=== PATIENT | male | born 1935 | race Caucasian/White ===

== ENCOUNTER 2017-12-05 15:42 | Inpatient (IN) | payer OTHER, MEDICARE ==
[~2017-12-05] VITALS: Ht 177.8 cm; Wt 85.3 kg
--- NOTE | 2017-12-05 16:01 | ED GI/GU/ABDOMINAL COMPLAINT ---
History of Present Illness General Chief Complaint: Nausea, Vomiting, Diarrhea Stated Complaint: NVD Source: patient, family, old records Exam Limitations: no limitations Vital Signs & Intake/Output Vital Signs & Intake/Output Vital Signs Date Time Temp Pulse Resp B/P B/P Pulse O2 O2 Flow FiO2 Mean Ox Delivery Rate 12/06 0037 100/62 12/05 2332 97.8 78 16 88/50 96 12/05 2319 Room Air 12/05 2249 97.9 85 18 127/80 96 Room Air 12/05 2130 98.3 75 18 120/67 97 Room Air 12/05 1708 94 20 111/87 94 Room Air 12/05 1630 97 Room Air Room Air 12/05 1630 86 20 101/72 99 Room Air 12/05 1549 98.6 73 18 86/55 98 Room Air ED Intake and Output 12/06 0000 12/05 1200 Intake Total 1000 Output Total Balance 1000 Intake, IV 1000 Patient 188 lb Weight Weight Reported by Patient Measurement Method Allergies Coded Allergies: NO KNOWN ALLERGIES (12/05/17) Reconcile Medications Apixaban (Eliquis) 5 MG TABLET 1 TAB PO BID BLOOD THINNER (Reported) Atorvastatin Calcium 40 MG TABLET 1 TAB PO DAILY CHOLESTEROL (Reported) Colchicine 0.6 MG TABLET 1 TAB PO PRN GOUT (Reported) Doxycycline Hyclate 100 MG CAPSULE 1 CAP PO DAILY AMYLOIDOSIS (Reported) Furosemide 40 MG TABLET 1 TAB PO DAILY DIURETIC (Reported) Levothyroxine Sodium 75 MCG TABLET 1 TAB PO DAILY THYROID (Reported) Metoprolol Succinate 50 MG TAB.ER.24H 1 TAB PO DAILY HEART/BP (Reported) Spironolactone 25 MG TABLET 1 TAB PO DAILY DIURETIC (Reported) Tamsulosin HCl 0.4 MG CAP.ER.24H 1 CAP PO DAILY (Reported) Triage Nurses Notes Reviewed? yes Onset: Abrupt Duration: day(s): (1), constant Timing: recent history Quality/Severity: aching, cramping Severity Numbers: 6 Location: left lower quadrant, right lower quadrant Radiation: no radiation Activities at Onset: sleep Prior Abdominal Problems: none Modifying Factors: Worsens With: eating. Associated Symptoms: diarrhea, nausea/vomiting HPI: 82-year-old male with history of A. 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 No black or bloody stools no hematemesis. He denies chest pain shortness of breath. On arrival patient is noted to be hypotensive however denies dizziness or lightheadedness. He denies any fever or chills no rhinorrhea cough congestion sore throat. No sick contacts patient has been on doxycycline chronically no recent changes in his dosage. He denies any chest pain palpitations shortness of breath (Aaron Puentes) Past History Travel History Traveled to [place] past 21 day No Medical History Any Pertinent Medical History? see below for history Neurological: NONE EENT: NONE Cardiovascular: AFIB, CHF, hypertension, hyperlipidemia Respiratory: NONE Gastrointestinal: NONE Hepatic: NONE Renal: CRF Musculoskeletal: gout Psychiatric: NONE Endocrine: hypothyroidism Blood Disorders: SYSTEMATIC AMLOIDOSIS Cancer(s): NONE MANUFACTURING ENGINEERING DIRECTOR/Reproductive: NONE Pneumonia Vaccine: 10/19/04 Influenza Vaccine: 08/31/07 Surgical History Surgical History: appendectomy, hernia repair-inguinal Psychosocial History Who do you live with Spouse What is your primary language Kazakh Tobacco Use: Quit >30 days ago Family History Hx Contributory? No (Aaron Puentes) Review of Systems Review of Systems Constitutional: Reports: no symptoms, see HPI. Comments Review of systems: See HPI, All other systems negative. Constitutional, no chills no fever, HEENT: no sore throat no congestion, Cardiovascular: No chest pain Skin: no rashes, no change in skin Respiratory: No dyspnea no cough no sputum GI: see hpi : No dysuria No hematuria, no frequency Muscle skeletal: No joint pain, no back pain, Neurologic: , no headache Psych: No stress Heme/endocrine: No bruising Immunology: No lymphadenopathy (Aaron Puentes) Physical Exam Physical Exam General Appearance: well developed/nourished, alert, awake Gastrointestinal: soft Comments: Well-developed well-nourished person in no acute distress HEENT: Normal EENT exam; PERRL, EOMI, HEAD is atraumatic. moist mucous membranes. Neck: Supple, normal range of motion Back: Nontender, no CVA tenderness. Full range of motion Cardiovascular: Irregular rate and rhythm no murmurs normal JVP Respiratory: No respiratory distress. Patient speaking in full complete sentences. Breath sounds clear to auscultation bilaterally: NO W/R/R Abdomen: Soft, minimal left lower quadrant tenderness palpation nondistended, no appreciable organomegaly. Normal bowel sounds. No rebound/guarding, No appreciable enlargement of the abdominal aorta, No ascites. Extremity: No edema, full range of motion of extremities Neuro: Alert oriented x3, motor sensory normal, . There were no obvious focal neurologic abnormalities. Skin: No appreciable rash on exposed skin, skin is warm and dry. Psych: Mood and affect is normal, memory and judgment is normal. Core Measures ACS in differential dx? Yes Sepsis Present: No Sepsis Focused Exam Completed? No (Jarrod CHEATHAM,Aaron) Progress Differential Diagnosis: biliary colic, bowel obstruction, colon cancer, cholecystitis, diverticulitis, gastritis, hepatitis, hernia, ischemic bowel, peptic ulcer, PUD/GERD, perforated viscous, cdiff, gastroenteritis Plan of Care: Orders Procedure Date/time Status Clear Liquid Diet 12/06 B Active TROPONIN LEVEL 12/06 0600 Active CBC WITHOUT DIFFERENTIAL 12/06 0600 Active BASIC ELECTROLYTES PLUS BUN&CR 12/06 0600 Active EKG 12/06 0600 Active TROPONIN LEVEL 12/06 0100 Active EKG 12/06 0100 Active Vital Signs 12/05 231 Active Teach/Educate 12/05 2318 Active Pain Treatment and Response 12/05 2318 Active Nutritional Intake, Monitor 12/05 2318 Active Isolation 12/05 231 Active Intake & Output 12/05 2318 Active Patient Care Conference 12/05 2319 Active Activity/Ambulation 12/05 2319 Active Pathway - chart 12/05 2227 Active House Staff 12/05 222 Active Pathway - chart 12/05 2112 Active ECHOCARDIOGRAM 12/05 211 Active Patient Data 12/05 2102 Active Saline Lock 12/05 210 Active Misc Message 12/05 210 Active ED Holding Orders 12/05 210 Active Admit to inpatient 12/05 2101 Active Vital Signs 12/05 2101 Active Code Status 12/05 2101 Active EKG 12/05 1912 Active LACTIC ACID 12/05 1911 Complete TROPONIN LEVEL 12/05 1900 Complete CULTURE,STOOL 12/05 1722 Active C.DIFFICILE 12/05 1722 Active Intake & Output 12/05 1654 Active PROTHROMBIN TIME 12/05 1613 Complete Saline Lock 12/05 1611 Active RAPID VIRAL INFLUENZA A 12/05 1611 Complete TROPONIN LEVEL 12/05 1611 Complete LACTIC ACID 12/05 1611 Complete COMPREHENSIVE METABOLIC PANEL 12/05 1611 Complete CBC WITHOUT DIFFERENTIAL 12/05 1611 Complete EKG 12/05 1601 Active VTE Mechanical Prophylaxis 12/05 UNK Active Current Medications Sig/Natalia Start time Last Medication Dose Stop Time Status Admin Atorvastatin Calcium 40 MG 1700 12/06 1700 AC (Lipitor) Levothyroxine Sodium 0.075 MG DAILY AC 12/06 0700 AC (Synthroid) Sodium Chloride 1,000 ML Q13H 12/05 2230 AC 12/06 (Normal Saline 0.9%) 12/06 1129 0000 Apixaban 5 MG BID 12/05 2200 AC 12/05 (Eliquis) 2252 Acetaminophen 650 MG Q6P PRN 12/05 211 AC (Tylenol) Sodium Chloride 1,000 ML ONCE ONE 12/05 2114 AC 12/05 (Normal Saline 0.9%) 12/06 0514 2120 Laboratory Tests 12/05/17 192: Troponin I 0.11 *H 12/05/17 192: Lactic Acid 1.6 12/05/17 161: Anion Gap 17 H, Estimated GFR 45 L, BUN/Creatinine Ratio 18.7, Glucose 115 H, Lactic Acid 2.0, Calcium 10.0, Total Bilirubin 1.8 H, AST 41, ALT 40, Alkaline Phosphatase 130 H, Troponin I 0.09, Total Protein 8.5 H, Albumin 4.6, Globulin 3.9, Albumin/Globulin Ratio 1.2, PT 14.8 H, INR 1.41 H, CBC w Diff NO MAN DIFF REQ, RBC 4.78, MCV 96.9 H, MCH 32.6 H, RDW 13.5, MPV 8.4, Gran % 95.2 H, Lymphocytes % 2.1 L, Monocytes % 2.3, Eosinophils % 0.3, Basophils % 0.1, Absolute Granulocytes 13.8 H, Absolute Lymphocytes 0.3 L, Absolute Monocytes 0.3, Absolute Eosinophils 0, Absolute Basophils 0, PUBS MCHC 33.6 Microbiology 12/05 173 STOOL: Clostridium difficile Toxin A & B - RECD 12/05 1733 STOOL: Stool Culture - RECD 12/05 161 NASOPHARYN: Influenza Virus A & B Rapid Smear - COMP labs ordered, iv fluids runing pt alert and oriented x 3, denies dizziness or lightheadedness despite bp case d/w dr rod agrees with plan 1800 on repeat eval pt denies pain, resting in nad, he reports baseline cr of 1.5. d/w him plan of care, pending ct still however will get repeat trop and lactic at 1900h I discussed with the patient his elevated troponin case was discussed with Dr. Jason-patient's sales ambassador is Dr. beltre at [facility]-Dr. Jason advised to trend troponins no heparin at this time patient is chest pain-free sitting up in bed he is in agreement with plan and need for admission at this time. Case discussed with Dr. farah will admit. stool culture sent pt seen and eval by dr ragsdale agrees with plan Diagnostic Imaging: Viewed by Me: CT Scan. Discussed w/RAD: CT Scan. Radiology Impression: PATIENT: SHAI TONEY PRESENT AGE: 82 PATIENT ACCOUNT NO: [id number] : 35 LOCATION: [facility] ORDERING PHYSICIAN: Aaron CHEATHAM SERVICE DATE: 12/05/17 EXAM TYPE: CAT - CT ABD & PELVIS W/O IV CONTRAS EXAMINATION: CT ABDOMEN AND PELVIS WITHOUT CONTRAST CLINICAL INFORMATION: Nausea. Vomiting. Diarrhea. COMPARISON: CT scan abdomen pelvis 10/19/2007 TECHNIQUE: Multidetector volumetric imaging was performed from the superior aspect of the liver through the pubic symphysis. Sagittal and coronal reformatted images were obtained on the technologist's workstation. DLP: 384.76 mGy-cm FINDINGS: LUNG BASES: Heart size is enlarged. Lung bases are clear. No pleural effusion. LIVER, GALLBLADDER, AND BILIARY TREE: The liver is normal in size, shape, and attenuation. No focal hepatic lesion or biliary ductal dilatation is present. The gallbladder is unremarkable with no evidence of radiopaque gallstones, gallbladder wall thickening, or obvious pericholecystic inflammatory changes. PANCREAS: Unremarkable. SPLEEN: Unremarkable. ADRENAL GLANDS: Left adrenal myelolipoma. There is a large nodule measuring 4 x 3.6 cm which has a density measurement of -20 Hounsfield units this was present on the CAT scan of 10/19/2007 a previously measured 2.3 x 2 cm. The right adrenal gland is normal. KIDNEYS AND URETERS: The kidneys are normal in size, shape, and attenuation. No hydronephrosis, hydroureter, or calculi seen. No perinephric stranding. Pedunculated 1.8 cm cortical cyst at the posterior midpole of left kidney. 1.6 cm cortical cyst pedunculated at the upper pole of left kidney. BLADDER: Bladder obscured by streak artifact from bilateral hip replacement GASTROINTESTINAL TRACT: Status post appendectomy with surgical suture material adjacent to the cecum. There are a few diverticula of left colon sigmoid but no diverticulitis. No acute change of the bowel. No bowel obstruction. No bowel wall thickening or edema. Moderate volume of stool in the colon. The small bowel loops are unremarkable. ABDOMINAL WALL: Status post surgery left groin with no recurrent hernia. LYMPH NODES: Normal. VASCULAR: Atherosclerotic vascular wall calcifications of the abdomen iliac arteries and splenic artery. No aneurysm of the aorta. PELVIC VISCERA: Radiation therapy seeds within the prostate. OSSEOUS STRUCTURES: Status post bilateral hip replacement. Degenerative spondylosis of the lumbar spine with disc height narrowing and endplate spurring and facet joint arthrosis. IMPRESSION: 1. No acute abnormality CT scan abdomen pelvis. No acute change of the bowel. 2. 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 3. Status post hernia repair left groin without recurrent hernia. 4. Status post appendectomy. 5. Status post bilateral hip replacement. DICTATED BY: Binu Syed MD DATE/TIME DICTATED:12/05/171835 YARN DUMPER:CINDY DATE/TIME TRANSCRIBED:1835 CONFIDENTIAL, DO NOT COPY WITHOUT APPROPRIATE AUTHORIZATION. < Electronically signed in Other Vendor System> SIGNED BY: Binu Syed MD [id number], PATIENT: SHAI TONEY PRESENT AGE: 82 PATIENT ACCOUNT NO: [id number] : 35 LOCATION: [facility] ORDERING PHYSICIAN : Aaron CHEATHAM SERVICE DATE: 12/05/17 EXAM TYPE: RAD - XRY-PORTABLE CHEST XRAY EXAMINATION: XR PORTABLE CHEST CLINICAL INFORMATION: CHF COMPARISON: Chest x-ray 06/04/2006 TECHNIQUE: Portable frontal view of the chest was obtained. 9:12 PM FINDINGS: Lungs are clear. No pulmonary vascular congestion. There is no pleural effusion. The heart size is normal. The cardiac and mediastinal contours are normal. There are calcifications of the thoracic aorta. There are multilevel degenerative changes of dorsal spine. IMPRESSION: Unremarkable examination. DICTATED BY: Binu Syed MD DATE/TIME DICTATED:2133 YARN DUMPER:CINDY DATE/TIME TRANSCRIBED:12/05/172133 CONFIDENTIAL, DO NOT COPY WITHOUT APPROPRIATE AUTHORIZATION. <Electronically signed in Other Vendor System> SIGNED BY: Binu Syed MD 12/05/172139 Initial ED EKG: AFIB AT 110, NO ACUTE ST SEG CAHNGES Prior EKG: unchanged Repeat EKG: unchanged Rhythm Strip: atrial fibrillation (Aaron Puentes) Departure Departure Time of Disposition: 2058 Disposition: STILL A PATIENT Condition: Stable Clinical Impression Primary Impression: Nausea vomiting and diarrhea Secondary Impressions: Elevated troponin Referrals: Yordan GAMEZ,Kevin (PCP/Family) Departure Forms: Customer Survey General Discharge Information Admission Note Spoke With: Erick Farah MD Documentation of Exam: Documentation of any treatments & extenuating circumstances including Concerns Regarding Discharge (functional status, medication knowledge or non-compliance, living conditions, etc.) that warrant an admission rather than observation: CARDIO CONSULT, TREND LABS TELE MONITORING, TREND TROPONIN, PREMATURE DISCHARGE WOULD BE MEDICALLY HARMFUL (Aaron Puentes) PA/VOCATIONAL REHABILITATION SPECIALIST Co-Sign Statement Statement: ED Attending supervision documentation- [x] I saw and evaluated the patient. I have also reviewed all the pertinent lab results and diagnostic results. I agree with the findings and the plan of care as documented in the PA's/VOCATIONAL REHABILITATION SPECIALIST's documentation. 12/05/17, 20:50pm... +troponin... I assumed care of patient... he is chest pain free, benign exam, non acute ekgs.... pt merits admission for serial trops, further care, cards evaluation. no need for heparin since patient is on eliquis. pt stable for tele per cards. [] I have reviewed the ED Record and agree with the PA's/VOCATIONAL REHABILITATION SPECIALIST's documentation. [] Additions or exceptions (if any) to the PAs/VOCATIONAL REHABILITATION SPECIALIST's note and plan are summarized below: [] (Clau GAMEZ,Cuate Gan) Critical Care Note Critical Care Note Critical Care Time: 30-74 min (Aaron Puentes) Critical Care Note Critical Care Time: 30-74 min (Cuate Ragsdale MD) Critical Care Time: 30-74 min (Cuate Ragsdale MD)
[2017-12-05 16:26] LABS: ABSOLUTE BASOPHIL COUNT 0 /CUMM (0.0-0.2); ABSOLUTE EOSINOPHIL COUNT 0 /CUMM (0.0-0.7); ABSOLUTE GRANULOCYTE CT 13.8 /CUMM (1.4-6.5); ABSOLUTE LYMPH COUNT 0.3 /CUMM (1.2-3.4); ABSOLUTE MONOCYTE COUNT 0.3 /CUMM (0.10-0.60); BASOPHIL % 0.1 % (0.0-2.0); EOSINOPHIL % 0.3 % (0-5); HEMATOCRIT 46.3 % (42-52); MEAN CORPUSCULAR HGB 32.6 PG (27.0-31.0); MEAN CORPUSCULAR HGB CONC 33.6 G/DL (33.0-37.0); MEAN CORPUSCULAR VOLUME 96.9 FL (80.0-94.0); MEAN PLATELET VOLUME 8.4 FL (7.4-10.4); PLATELET COUNT 171 /CUMM (130-400); RBC DISTRIBUTION WIDTH 13.5 % (11.5-14.5); RED BLOOD CELL CT 4.78 /CUMM (4.70-6.10); WHITE BLOOD CELL COUNT 14.5 /CUMM (4.8-10.8)
[2017-12-05 16:29] LABS: PT 14.8 SEC (9.4-12.5)
[2017-12-05 17:09] LABS: GRANULOCYTE % 95.2 % (42.2-75.2)
[2017-12-05] MEDS ORDERED: SPIRONOLACTONE25 M1 PO (17:41)
[2017-12-05] MEDS ORDERED: TAMSULOSIN HCL0.4 M1 PO (17:41)
[2017-12-05] MEDS ORDERED: FUROSEMIDE40 M1 PO (17:42)
[2017-12-05] MEDS ORDERED: METOPROLOL SUCC50 M2 PO (17:42)
[2017-12-05] MEDS ORDERED: LEVOTHYROXINE75 MCG PO (17:42)
[2017-12-05] MEDS ORDERED: ELIQUIS5 M1 PO (17:43)
[2017-12-05] MEDS ORDERED: DOXYCYCLINE HY100 M2 PO (17:43)
[2017-12-05] MEDS ORDERED: ATORVASTATIN CA40 M1 PO (17:44)
[2017-12-05] MEDS ORDERED: COLCHICINE0.6 M2 PO (17:44)
--- NOTE | 2017-12-05 18:49 | CT SCAN REPORT ---
EXAMINATION: CT ABDOMEN AND PELVIS WITHOUT CONTRAST CLINICAL INFORMATION: Nausea. Vomiting. Diarrhea. COMPARISON: CT scan abdomen pelvis 10/19/2007 TECHNIQUE: Multidetector volumetric imaging was performed from the superior aspect of the liver through the pubic symphysis. Sagittal and coronal reformatted images were obtained on the technologist's workstation. DLP: 384.76 mGy-cm FINDINGS: LUNG BASES: Heart size is enlarged. Lung bases are clear. No pleural effusion. LIVER, GALLBLADDER, AND BILIARY TREE: The liver is normal in size, shape, and attenuation. No focal hepatic lesion or biliary ductal dilatation is present. The gallbladder is unremarkable with no evidence of radiopaque gallstones, gallbladder wall thickening, or obvious pericholecystic inflammatory changes. PANCREAS: Unremarkable. SPLEEN: Unremarkable. ADRENAL GLANDS: Left adrenal myelolipoma. There is a large nodule measuring 4 x 3.6 cm which has a density measurement of -20 Hounsfield units this was present on the CAT scan of 10/19/2007 a previously measured 2.3 x 2 cm. The right adrenal gland is normal. KIDNEYS AND URETERS: The kidneys are normal in size, shape, and attenuation. No hydronephrosis, hydroureter, or calculi seen. No perinephric stranding. Pedunculated 1.8 cm cortical cyst at the posterior midpole of left kidney. 1.6 cm cortical cyst pedunculated at the upper pole of left kidney. BLADDER: Bladder obscured by streak artifact from bilateral hip replacement GASTROINTESTINAL TRACT: Status post appendectomy with surgical suture material adjacent to the cecum. There are a few diverticula of left colon sigmoid but no diverticulitis. No acute change of the bowel. No bowel obstruction. No bowel wall thickening or edema. Moderate volume of stool in the colon. The small bowel loops are unremarkable. ABDOMINAL WALL: Status post surgery left groin with no recurrent hernia. LYMPH NODES: Normal. VASCULAR: Atherosclerotic vascular wall calcifications of the abdomen iliac arteries and splenic artery. No aneurysm of the aorta. PELVIC VISCERA: Radiation therapy seeds within the prostate. OSSEOUS STRUCTURES: Status post bilateral hip replacement. Degenerative spondylosis of the lumbar spine with disc height narrowing and endplate spurring and facet joint arthrosis. IMPRESSION: 1. No acute abnormality CT scan abdomen pelvis. No acute change of the bowel. 2. 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 3. Status post hernia repair left groin without recurrent hernia. 4. Status post appendectomy. 5. Status post bilateral hip replacement.
--- NOTE | 2017-12-05 21:15 | History & Physical ---
Hay Gil 12/05/172113: General Information and HPI History of Present Illness: Mr. Billings is a 82 yo m with a PMH significant for Afib on Eliquis, Systemic Amyloidosis, Smoldering Myeloma, CKD, ?CHF, Hypothyroidism, HTN, HLD, nicotine dependence (1PPD x 6 yrs, quit 55 yrs ago) who present to the ED with NVD and lower abdominal pain. Patient reports that he was in his usual state of health before having abdominal discomfort on Friday at 5 am. He recalls taking his Synthroid at 4 am with water prior to event. He rates his abdominal disconfort an average of 5/10 without radiation. He then began to vomit yellowish liquid that afternoon and subsequently watery stools. He reports multiple episodes of vomiting and diarrhea. His last vomit was 2:30 pm Friday. He has not kept himself adequately hydrated and his appetite has been poor. He reports he ate at his son's home evening but no one else in household with similar symptoms. He received his flu vaccine this season. He denies fever, chills, sick contacts, recent travel, lightheadedness, weakness, myalgias, bloody stools or urinary symptoms. Allergies/Medications Allergies: Coded Allergies: NO KNOWN ALLERGIES (12/05/17) Home Med list Apixaban (Eliquis) 5 MG TABLET 1 TAB PO BID BLOOD THINNER (Reported) Atorvastatin Calcium 40 MG TABLET 1 TAB PO DAILY CHOLESTEROL (Reported) Colchicine 0.6 MG TABLET 1 TAB PO PRN GOUT (Reported) Doxycycline Hyclate 100 MG CAPSULE 1 CAP PO DAILY AMYLOIDOSIS (Reported) Furosemide 40 MG TABLET 1 TAB PO DAILY DIURETIC (Reported) Levothyroxine Sodium 75 MCG TABLET 1 TAB PO DAILY THYROID (Reported) Metoprolol Succinate 50 MG TAB.ER.24H 1 TAB PO DAILY HEART/BP (Reported) Spironolactone 25 MG TABLET 1 TAB PO DAILY DIURETIC (Reported) Tamsulosin HCl 0.4 MG CAP.ER.24H 1 CAP PO DAILY (Reported) Past History Travel History Traveled to [place] past 21 day No Medical History Neurological: NONE EENT: NONE Cardiovascular: AFIB, CHF, hypertension, hyperlipidemia Respiratory: NONE Gastrointestinal: NONE Hepatic: NONE Renal: CRF Musculoskeletal: gout Psychiatric: NONE Endocrine: hypothyroidism Blood Disorders: SYSTEMATIC AMLOIDOSIS Cancer(s): NONE HEAD WOOD GRINDER/Reproductive: NONE Pneumonia Vaccine: 10/19/04 Influenza Vaccine: 08/31/07 Surgical History Surgical History: appendectomy, hernia repair-inguinal, hip replacement Past Family/Social History Psychosocial History Smoking Status: Former Smoker Review of Systems Review of Systems Constitutional: Reports: see HPI. Exam & Diagnostic Data Last 24 Hrs of Vital Signs/I&O Vital Signs Date Time Temp Pulse Resp B/P B/P Pulse O2 O2 Flow FiO2 Mean Ox Delivery Rate 12/05 2249 97.9 85 18 127/80 96 Room Air 12/05 2130 98.3 75 18 120/67 97 Room Air 12/05 1708 94 20 111/87 94 Room Air 12/05 1630 97 Room Air Room Air 12/05 1630 86 20 101/72 99 Room Air 12/05 1549 98.6 73 18 86/55 98 Room Air Intake & Output 12/05 1600 12/05 0800 12/05 0000 Intake Total Output Total Balance Patient 190 lb Weight Weight Reported by Patient Measurement Method Physical Exam General Appearance Alert, Oriented X3, Cooperative, No Acute Distress Skin No Significant Lesion HEENT Atraumatic, PERRLA, EOMI, Mucous Membr. moist/pink Neck Supple, No JVD, No thryomegaly Cardiovascular Irregular rate Lungs Clear to Auscultation Abdomen Normal Bowel Sounds, Soft, No Tenderness Neurological Normal Speech, Strength at 5/5 X4 Ext, Normal Tone Extremities Trace LLE edema Last 24 Hrs of Labs/[place]mond: Laboratory Tests 12/05/171925: Troponin I 0.11 *H 12/05/17 192: Lactic Acid 1.6 12/05/17 1613: Anion Gap 17 H, Estimated GFR 45 L, BUN/Creatinine Ratio 18.7, Glucose 115 H, Lactic Acid 2.0, Calcium 10.0, Total Bilirubin 1.8 H, AST 41, ALT 40, Alkaline Phosphatase 130 H, Troponin I 0.09, Total Protein 8.5 H, Albumin 4.6, Globulin 3.9, Albumin/Globulin Ratio 1.2, PT 14.8 H, INR 1.41 H, CBC w Diff NO MAN DIFF REQ, RBC 4.78, MCV 96.9 H, MCH 32.6 H, RDW 13.5, MPV 8.4, Gran % 95.2 H, Lymphocytes % 2.1 L, Monocytes % 2.3, Eosinophils % 0.3, Basophils % 0.1, Absolute Granulocytes 13.8 H, Absolute Lymphocytes 0.3 L, Absolute Monocytes 0.3, Absolute Eosinophils 0, Absolute Basophils 0, PUBS MCHC 33.6 Microbiology 12/05 1734 STOOL: Clostridium difficile Toxin A & B - RECD 12/05 1733 STOOL: Stool Culture - RECD 12/05 1613 NASOPHARYN: Influenza Virus A & B Rapid Smear - COMP Diagnostic Data EKG Results 12/05/17 19:19:22 Low voltage, irregular rate, no P waves III, aVF: T wave inversions HR: 79 QTc: 459 CXR Results 12/05/17-2100 FINDINGS: Lungs are clear. No pulmonary vascular congestion. There is no pleural effusion. The heart size is normal. The cardiac and mediastinal contours are normal. There are calcifications of the thoracic aorta. There are multilevel degenerative changes of dorsal spine. IMPRESSION: Unremarkable examination. Other Results 12/05/17-1610 CT ABD & PELVIS W/O IV CONTRAS IMPRESSION: 1. No acute abnormality CT scan abdomen pelvis. No acute change of the bowel. 2. 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 3. Status post hernia repair left groin without recurrent hernia. 4. Status post appendectomy. 5. Status post bilateral hip replacement. Assessment/Plan Assessment: Mr. Billings is a 82 yo m with a PMH significant for Afib on Eliquis, Systemic Amyloidosis, Smoldering Myeloma, ?CHF, Hypothyroidism, HTN, HLD, nicotine dependence (1PPD x 6 yrs, quit 55 yrs ago) who present to the ED with NVD and lower abdominal pain admitted to telemetry for elevated troponin Elevated troponin most likely 2/2 demand ischemia vs ACS On admission his trop trended up 0.09>>0.11 in the setting of known CKD and dehydration * Admit to telemetry for further monitoring and evaluation * Serial trop/ECG to r/o ACS * Cardio consult * ECHO to r/o SHD or valvular abnormalities * Vitals q shift * Strict I&O * Gentle hydration with NS IVF NVD most likely 2/2 viral gastroenteritis with dehydration Patient's labs showed leukocytosis without bandemia and he remained afebrile. His LA trended down from 2>>1.[address] ABD/Pel demonstrated no acute pathology * Gentle hydration with NS IVF * Follow up stool cultures * Watch off antibiotics * Monitor white count History of CKD (baseline 1.5), Afib, Systemic Amyloidosis, ?CHF, Hypothyroidism, HTN, HLD * Continue home meds except Lasix, Metoprolol until BP stable Diet: Clear liquid, advance as tolerated DVT ppx: Eliquis As Ranked By This Provider Problem List: 1. Nausea vomiting and diarrhea 2. Elevated troponin Core Measures/Misc (08/03) Acute Coronary Syndrome ACS Diagnosis: No Congestive Heart Failure Congestive Heart Failure Diagnosis No Cerebrovascular Accident CVA/TIA Diagnosis: No VTE (View Protocol) VTE Risk Factors Age>40 No Mechanical VTE Prophylaxis d/t N/A MechProphylax Ordered No VTE Pharm Prophylaxis d/t NA PharmProphylax ordered Sepsis (View protocol) Sepsis Present: No Fidelia Champion 12/05/17 2256: Resident Review Statement Resident Statement: examined this patient, discussed with manager intern, agreed with manager intern, discussed with family, reviewed EMR data (avail), discussed with nursing , reviewed images, amended to note Other Findings: 82-year-old gentleman with past medical history of a 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 fib on eliquis possible CHF, CRF cr 1.5 baseline, smuldering came to the hospital for chief complaint of nausea, vomiting, diarrhea for couple of hours. patient reported that since 5 AM had multiple episodes of nonbloody diarrhea and multiple episodes of nonbloody vomiting and nausea with no palpitation, chest pain with mild to moderate abdominal pain no fevers or chills.patient last meal before the episode was at his son's house nobody else has the same symptoms . No history of recent travel or change in the medication . Upon interview patient was feeling better and nausea and vomiting has a stopped and had fewer episodes of diarrhea in between. Vital signs on arrival was blood pressure 86/55 with heart at the 110 which was increased after bolus of 2 L normal saline to 120/67 with heart rate of 75, no fever Alert and oriented 3 HEENT Atraumatic, PERRLA, EOMI Neck Supple, No JVD, No thryomegaly Lymphatic Cervical nl Cardiovascular iriRegular Rate, Normal S1, Normal S2 Lungs Clear to Auscultation, Normal Air Movement Abdomen Normal Bowel Sounds, Soft, mildly distended Neurological Normal Gait, Normal Speech, Strength at 5/5 X4 Ext, Sensation Intact Extremities +1 Edema,Normal Pulses Labs were notable for WBC 14.5, I hemoglobin 15.6, anion gap 17, creatinine 1.5, bilirubin 1.8, alkaline phosphatase at 130, troponin 0.09 and troponin troponin 0.11 Chest x-ray unremarkable CT abdomen and pelvis IMPRESSION: 1. No acute abnormality CT scan abdomen pelvis. No acute change of the bowel. 2. 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 3. Status post hernia repair left groin without recurrent hernia. 4. Status post appendectomy. 5. Status post bilateral hip replacement. EKG showed A. fib, 108, QTC 461, low voltage Assessment Gastroenteritis most likely viral Positive troponin History of hypothyroidism History of hypertension History of hyperLipidemia History of CHF on Lasix History of amelioidosis and smoldering myeloma on doxycycline History of A. fib on eliquis Plan Admit to telemetry EKG and troponin 3 follow up for C. difficile and stool culture if patient diarrhea did not improve No heparin therapy per cardiology recommendation Echocardiogram in the morning Continue eliquis Hold antihypertensive medications For now and restart in the morning the patient blood pressure is better Continue levothyroxine and statin Hold Lasix For now and restart in the morning the patient blood pressure is better IV hydration with 1 bagof normal saline and clear liquid diet for now when we can advance diet tomorrow Full code, clear liquid diet, Tylenol for pain, DVT prophylaxis is eliqumarco antonio and Erick Arroyo 12/06/17 0053: Attending MD Review Statement Attending Statement Attending MD Statement: examined this patient, discuss w/resident/PA/NETWORK ACCOUNT MANAGER, agreed w/resident/PA/NETWORK ACCOUNT MANAGER, reviewed EMR data (avail), reviewed images, amended to note Attending Assessment/Plan: CC: Nausea vomiting diarrhea PMH: CA prostate, HTN, HF (with unknown EF), CKD, A. fib, amyloidosis, smoldering myeloma, hypothyroidism Patient came to ER for nausea and vomiting and diarrhea. Patient woke up 5 AM in the morning with lower abdominal pain, 5/10 intensity, nonradiating followed by which he had nausea, vomiting and diarrhea. He had septal watery stools, nonbloody and evaluation vomiting which is nonbloody. Currently his abdominal pain is much better, he had few watery stools while in ER. Denies any change of medication, sick contacts, hospitalization, fever, chills, chest pain, palpitations, cough, expectoration. Never had similar episode in the past. Vitals: T 98.6, pulse 80s, on her 18, blood pressure 86/55 on antiplatelet improved to 101/72 > 111/87, saturating well on room air. On exam: A O 3, cooperative, no acute distress, neck supple, JVD normal, no lymphadenopathy, mucosa dry, no focal neurological deficit, no dependent edema, no obvious skin rashes or inflammation CVS: S1-S2, RRR. RS: Clear to auscultate bilaterally. Abdomen: Soft, NT, ND, bowel sounds present. Labs: WBC 14.5, hemoglobin 15.6, hematocrit 46.3, platelet 171, neutrophils 95%, sodium 141, potassium 4.5, chloride 102, bicarbonate 22, BUN 28, creatinine 1.5, anion gap 17, glucose 115, calcium 10.0, lactate 2.0, bilirubin 1.8, AST 41, ALT 40, alkaline phosphatase 130, troponin 0.09 >> 0.11, albumin 4.6, INR 1.41 ECG: A. fib CT abdomen and pelvis without IV contrast: 1. No acute abnormality CT scan abdomen pelvis. No acute change of the bowel. 2. 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 3. Status post hernia repair left groin without recurrent hernia. 4. Status post appendectomy. 5. Status post bilateral hip replacement. Assessment and plan 82-year-old male with past medical history significant for CA prostate, HTN, HF (with unknown EF), CKD, A. fib, amyloidosis, smoldering myeloma, hypothyroidism presented in ER for nausea, vomiting, diarrhea, lower abdominal pain, nonbloody. This appears to be viral gastroenteritis. Patient does not have any sick contacts. Even though patient on doxycycline chronically low likelihood of C. difficile as patient has vomiting as well. Patient was mildly hypotensive at presentation, dehydrated on examination otherwise examination normal. Mild leukocytosis, lactic acidosis probably secondary to gastroenteritis. his creatinine is 1.5, but according to him is usually 1.5-1.7 range. Meanwhile patient's troponin elevated from 0.09-0.11 while in ER. Denies any chest pain, no ECG changes. This appears to be secondary to demand given his mild hypotension as presentation currently asymptomatic. + Gastroenteritis + Dehydration + Elevated troponin secondary to Demand ischemia + History of CA prostate, HTN, HF (with unknown EF), CKD, A. fib, amyloidosis, smoldering myeloma, hypothyroidism - Admit to telemetry - Continuous telemetry monitoring - Serial troponin and EKG - 2-D echocardiogram in a.m. - Cardiology consult in AM - Hold his furosemide, spironolactone, metoprolol tonight resume a.m. once blood pressure is stable overnight - Continue gentle hydration normal saline 75 mL per hour for 1 more liter, total 4 L - Follow up on C. difficile -Continue alprazolam, atorvastatin, levothyroxine. Resume doxycycline and colchicine from morning.
--- NOTE | 2017-12-05 21:40 | RADIOLOGY REPORT ---
EXAMINATION: XR PORTABLE CHEST CLINICAL INFORMATION: CHF COMPARISON: Chest x-ray 06/04/2006 TECHNIQUE: Portable frontal view of the chest was obtained. 9:12 PM FINDINGS: Lungs are clear. No pulmonary vascular congestion. There is no pleural effusion. The heart size is normal. The cardiac and mediastinal contours are normal. There are calcifications of the thoracic aorta. There are multilevel degenerative changes of dorsal spine. IMPRESSION: Unremarkable examination.
[2017-12-05 23:32] VITALS: BP 88/50
[2017-12-06 00:37] VITALS: BP 100/62
--- NOTE | 2017-12-06 00:56 | Admission Certification ---
Admission Certification Certification Statement - As attending physician, I certify that at the time of - admission, based on clinical presentation, severity of - symptoms, need for further diagnostic testing and - therapeutic interventions, and risk of adverse outcomes - without in-hospital treatment, in my clinical assessment, - this patient requires an acute hospital stay for a minimum - of two nights or longer. I have also considered psychsocial - factors such as support system, advanced age, financial - issues, cognitive issues, and failed out-patient treatments, - past re-admission history, safety of patient, and lack of - compliance as applicable. Specific rationale supporting this admission is: Gastroenteritis, dehydration, elevated troponin secondary to demand ischemia
[2017-12-06 07:00] VITALS: BP 98/60
[2017-12-06 08:55] LABS: ABSOLUTE BASOPHIL COUNT 0 /CUMM (0.0-0.2); ABSOLUTE EOSINOPHIL COUNT 0 /CUMM (0.0-0.7); ABSOLUTE GRANULOCYTE CT 4.8 /CUMM (1.4-6.5); ABSOLUTE LYMPH COUNT 0.2 /CUMM (1.2-3.4); ABSOLUTE MONOCYTE COUNT 0.5 /CUMM (0.10-0.60); MEAN CORPUSCULAR HGB 32.9 PG (27.0-31.0); MEAN CORPUSCULAR HGB CONC 33.8 G/DL (33.0-37.0); MEAN PLATELET VOLUME 8.7 FL (7.4-10.4); RBC DISTRIBUTION WIDTH 13.7 % (11.5-14.5); RED BLOOD CELL CT 3.84 /CUMM (4.70-6.10)
--- NOTE | 2017-12-06 09:04 | PN- Housestaff ---
See Addendum Subjective Follow-up For: gastroenteritis Tele-Events Since Last Visit: Afib 50-70 Subjective: No overnight events. Last diarrhea was 11pm, last vomit 3pm yesterday. No blood ever. Seems like symptoms came and went in <24 hours. Never had chest pain, has some mild SOB on exertion at baseline. Nio abd pain or nausea now. Review of Systems Constitutional: Reports: no symptoms. EENTM: Reports: no symptoms. Cardiovascular: Reports: no symptoms. Respiratory: Reports: see HPI. Gastrointestinal: Reports: see HPI. Genitourinary: Reports: no symptoms. Musculoskeletal: Reports: no symptoms. Skin: Reports: no symptoms. Neurological/Psychological: Reports: no symptoms. Hematologic/Endocrine: Reports: no symptoms. Immunologic/Allergic: Reports: no symptoms. Objective Last 24 Hrs of Vital Signs/I&O Vital Signs Date Time Temp Pulse Resp B/P B/P Pulse O2 O2 Flow FiO2 Mean Ox Delivery Rate 12/06 0700 98.7 72 18 98/60 94 12/06 0037 100/62 12/05 2332 97.8 78 16 88/50 96 12/05 2319 Room Air 12/05 2249 97.9 85 18 127/80 96 Room Air 12/05 2130 98.3 75 18 120/67 97 Room Air 12/05 1708 94 20 111/87 94 Room Air 12/05 1630 97 Room Air Room Air 12/05 1630 86 20 101/72 99 Room Air 12/05 1549 98.6 73 18 86/55 98 Room Air Intake & Output 12/06 1600 12/06 0800 12/06 0000 Intake Total 400 1000 Output Total Balance 400 1000 Intake, IV 1000 Intake, Oral 400 Patient 188 lb Weight Weight Reported by Patient Measurement Method Physical Exam General Appearance: Alert, Oriented X3, Cooperative, No Acute Distress Cardiovascular: irregualr Lungs: Clear to Auscultation, Normal Air Movement Abdomen: Normal Bowel Sounds, Soft, No Tenderness Extremities: No Edema, Normal Pulses, No Tenderness/Swelling Current Medications: Current Medications Sig/Natalia Start time Last Medication Dose Route Stop Time Status Admin Acetaminophen 650 MG Q6P PRN 12/05 2114 AC PO Apixaban 5 MG BID 12/05 2199 AC 12/05 PO 2252 Aspirin 0 .STK-MED ONE 01/19 2120 DC PO Aspirin 325 MG ONCE ONE 12/05 2114 DC 12/05 PO 12/05 2115 2120 Atorvastatin Calcium 40 MG 1700 12/06 1700 AC PO Doxycycline Hyclate 100 MG DAILY 12/06 1000 AC PO Levothyroxine Sodium 0.075 MG DAILY AC 12/06 0700 AC 12/06 PO 0611 Loperamide HCl 2 MG ONE ONE 12/05 2114 DC 12/05 PO 12/05 2115 212 Ondansetron HCl 0 .STK-MED ONE 12/05 170 DC .ROUTE Ondansetron HCl 4 MG ONCE ONE 12/05 170 DC 12/05 IV 12/05 1701 1708 Sodium Chloride 1,000 ML Q13H 12/05 2230 AC 12/06 IV 12/06 1129 0000 Sodium Chloride 1,000 ML ONCE ONE 12/05 2114 DC 12/05 IV 12/06 0514 2120 Sodium Chloride 1,000 ML BOLUS ONE 12/05 1730 DC 12/05 IV 12/05 1829 1708 Sodium Chloride 1,000 ML BOLUS ONE 12/05 1615 DC 12/05 IV 12/05 1714 1638 Last 24 Hrs of Lab/[place] Results Last 24 Hrs of Labs/Mics: Laboratory Tests 12/06/17 0613: Anion Gap 13, Estimated GFR 49 L, BUN/Creatinine Ratio 17.1, Troponin I 0.17 *H , CBC w Diff Pending, WBC Pending, RBC Pending, Hgb Pending, Hct Pending, MCV Pending, MCH Pending, RDW Pending, Plt Count Pending, MPV Pending, PUBS MCHC Pending 12/06/17 0030: Troponin I 0.14 *H 12/05/171925: Troponin I 0.11 *H 12/05/17 192: Lactic Acid 1.6 12/05/17 1613: Anion Gap 17 H, Estimated GFR 45 L, BUN/Creatinine Ratio 18.7, Glucose 115 H, Lactic Acid 2.0, Calcium 10.0, Total Bilirubin 1.8 H, AST 41, ALT 40, Alkaline Phosphatase 130 H, Troponin I 0.09, Total Protein 8.5 H, Albumin 4.6, Globulin 3.9, Albumin/Globulin Ratio 1.2, PT 14.8 H, INR 1.41 H, CBC w Diff NO MAN DIFF REQ, RBC 4.78, MCV 96.9 H, MCH 32.6 H, RDW 13.5, MPV 8.4, Gran % 95.2 H, Lymphocytes % 2.1 L, Monocytes % 2.3, Eosinophils % 0.3, Basophils % 0.1, Absolute Granulocytes 13.8 H, Absolute Lymphocytes 0.3 L, Absolute Monocytes 0.3, Absolute Eosinophils 0, Absolute Basophils 0, PUBS MCHC 33.6 Microbiology 12/05 1734 STOOL: Clostridium difficile Toxin A & B - RES 12/05 1734 STOOL: Stool Culture - RES 12/05 1613 NASOPHARYN: Influenza Virus A & B Rapid Smear - COMP Assessment/Plan Assessment: Mr. Billings is a 82 yo m with a PMH significant for Afib on Eliquis, Systemic Amyloidosis, Smoldering Myeloma, ?CHF, Hypothyroidism, HTN, HLD, nicotine dependence (1PPD x 6 yrs, quit 55 yrs ago) who present to the ED with NVD and lower abdominal pain admitted to telemetry for elevated troponin. Problem List: 1. Viral gastroenteritis 2. Type II NE, demand ischemia 3. RODRÍGUEZ #Viral gastroenteritis: He had copious vomiting and diarrhea that was nonbloody. His symptoms resolved in less than 24 hours. Imaging did not reveal any acute abnormalities. He has had not had any further symptoms since 11 PM last night. His electrolytes look good this morning. He has received 4 L normal saline. -Continue supportive care -f/u cultures #Type II NE, demand ischemia: He never had chest pain. However, troponins were mildly elevated. There continue to trend slightly. -Follow EKG and troponins until down trend -Cardiology consult -TTE #RODRÍGUEZ: Creatinine is 1.5 at admission. He has no baseline because he has not been here before. May be prerenal azotemia in the setting of infection. -Continue to monitor #Chronic medical problems: -Continue home atorvastatin, doxycycline, levothyroxine, apixiban DVT prophylaxis with apixiban Heart healthy diet Full code Problem List: 1. Elevated troponin Pain Ratin Pain Location: none Pain Goal: Remain pain free Pain Plan: see a/p Tomorrow's Labs & Rationales: bep
[2017-12-06 09:13] LABS: BASOPHIL % 0.2 % (0.0-2.0); EOSINOPHIL % 0.4 % (0-5); GRANULOCYTE % 85.9 % (42.2-75.2); MEAN CORPUSCULAR VOLUME 97.4 FL (80.0-94.0); PLATELET COUNT 132 /CUMM (130-400)
[2017-12-06 09:15] LABS: HEMATOCRIT 37.4 % (42-52); WHITE BLOOD CELL COUNT 5.6 /CUMM (4.8-10.8)
--- NOTE | 2017-12-06 13:30 | Cons- Cardiology ---
General Information and HPI Consulting Request Requested By: Erick Farah MD Reason for Consult: Positive Troponin I. Source of Information: patient, family, old records Exam Limitations: no limitations History of Present Illness: Mr. Clarence Billings is an 82-year-old male with a history of remote former tobacco use (1 ppd 6 years, d/c'd 55 yrs ago), hypertension, dyslipidemia, gout, hypothyroidism, "smoldering" multiple myeloma/"systemic" amyloidosis s/p myocardial biopsy without cardiac involvement, chronic kidney disease, and chronic atrial fibrillation on anticoagulation with the NOAC Eliquis (apixaban) who presented to the ED 12/05/2017 early a.m. with c/o abdominal pain ("5/5"), nausea, vomiting, diarrhea. [place] mentioning is the fact that the patient did have two previous cardiac catheterizations (~2004, 2016) which revealed no evidence of obstructive coronary artery disease. Allergies/Medications Allergies: Coded Allergies: NO KNOWN ALLERGIES (12/05/17) Home Med List: Apixaban (Eliquis) 5 MG TABLET 1 TAB PO BID BLOOD THINNER (Reported) Atorvastatin Calcium 40 MG TABLET 1 TAB PO DAILY CHOLESTEROL (Reported) Colchicine 0.6 MG TABLET 1 TAB PO PRN GOUT (Reported) Doxycycline Hyclate 100 MG CAPSULE 1 CAP PO DAILY AMYLOIDOSIS (Reported) Furosemide 40 MG TABLET 1 TAB PO DAILY DIURETIC (Reported) Levothyroxine Sodium 75 MCG TABLET 1 TAB PO DAILY THYROID (Reported) Metoprolol Succinate 50 MG TAB.ER.24H 1 TAB PO DAILY HEART/BP (Reported) Spironolactone 25 MG TABLET 1 TAB PO DAILY DIURETIC (Reported) Tamsulosin HCl 0.4 MG CAP.ER.24H 1 CAP PO DAILY (Reported) Review of Systems Review of Systems: A 14 point review was obtained and was noncontributory, other than as above. Past History Travel History Traveled to [place] past 21 day No Medical History Blood Transfusion Hx: No Neurological: NONE EENT: NONE Cardiovascular: AFIB, CHF, hypertension, hyperlipidemia Respiratory: NONE Gastrointestinal: NONE Hepatic: NONE Renal: CRF Musculoskeletal: gout Psychiatric: NONE Endocrine: hypothyroidism Blood Disorders: SYSTEMATIC AMLOIDOSIS Cancer(s): prostate cancer GAS PLANT WORKER/Reproductive: NONE Surgical History Surgical History: appendectomy, hernia repair-inguinal, hip replacement, s/p implants for prostate carcinoma., s/p bilateral endoscopic carpal release. tunnel release. Psychosocial History Where Do You Live? Home Services at Home: None Smoking Status: Former Smoker Exam & Diagnostic Data Vital Signs and I&O Vital Signs Date Time Temp Pulse Resp B/P B/P Pulse O2 O2 Flow FiO2 Mean Ox Delivery Rate 12/06 0700 98.7 72 18 98/60 94 12/06 0037 100/62 12/05 2332 97.8 78 16 88/50 96 12/05 2319 Room Air 12/05 2249 97.9 85 18 127/80 96 Room Air 12/05 2130 98.3 75 18 120/67 97 Room Air 12/05 1708 94 20 111/87 94 Room Air 12/05 1630 97 Room Air Room Air 12/05 1630 86 20 101/72 99 Room Air 12/05 1549 98.6 73 18 86/55 98 Room Air Intake & Output 12/06 1600 12/06 0800 12/06 0000 12/05 1600 12/05 0800 12/05 0000 Intake Total 400 1000 Output Total Balance 400 1000 Intake, IV 1000 Intake, Oral 400 Patient 188 lb 190 lb Weight Weight Reported by Patient Reported by Patient Measurement Method Physical Exam: Well-developed, well-nourished elderly male distress. Vital signs: See above. HEENT: Normocephalic, atraumatic, EOMI, slightly dry mucous membranes. Neck: No JVD, no bruits. Lungs: Clear to auscultation bilaterally. Heart: S1, S2 no murmur, gallop, or rub appreciated. PMI fifth ICS at MCL. Abdomen: Soft, positive bowel sounds. Mildly tender to palpation. Extremities: No edema. Labs/[place] Results: Laboratory Tests 12/06 12/06 12/05 0613 0030 6 Chemistry Sodium (137 - 145 mmol/L) 142 Potassium (3.5 - 5.1 mmol/L) 4.1 Chloride (98 - 107 mmol/L) 107 Carbon Dioxide (22 - 30 mmol/L) 23 Anion Gap (5 - 16) 13 BUN (9 - 20 mg/dL) 24 H Creatinine (0.7 - 1.2 mg/dL) 1.4 H Estimated GFR (>60 ml/min) 49 L BUN/Creatinine Ratio (7 - 25 %) 17.1 Troponin I (<0.11 ng/ml) 0.17 *H 0.14 *H 0.11 *H Hematology CBC w Diff MAN DIFF ORDERED WBC (4.8 - 10.8 /CUMM) 5.6 RBC (4.70 - 6.10 /CUMM) 3.84 L Hgb (14.0 - 18.0 G/DL) 12.6 L Hct (42 - 52 %) 37.4 L MCV (80.0 - 94.0 FL) 97.4 H MCH (27.0 - 31.0 PG) 32.9 H RDW (11.5 - 14.5 %) 13.7 Plt Count (130 - 400 /CUMM) 132 MPV (7.4 - 10.4 FL) 8.7 Gran % (42.2 - 75.2 %) 85.9 H Lymphocytes % (20.5 - 51.1 %) 4.4 L Monocytes % (1.7 - 9.3 %) 9.1 Eosinophils % (0 - 5 %) 0.4 Basophils % (0.0 - 2.0 %) 0.2 Absolute Granulocytes (1.4 - 6.5 /CUMM) 4.8 Segmented Neutrophils (42.2 - 75.2 %) 83 H Band Neutrophils (0.0 - 5.0 %) 3 Absolute Lymphocytes (1.2 - 3.4 /CUMM) 0.2 L Lymphocytes (20.5 - 51.1 %) 5 L Monocytes (1.7 - 9.3 %) 9 Absolute Monocytes (0.10 - 0.60 /CUMM) 0.5 Absolute Eosinophils (0.0 - 0.7 /CUMM) 0 Absolute Basophils (0.0 - 0.2 /CUMM) 0 Nucleated RBCs (0.0 - 0.0 /100WBC) 1 H Platelet Estimate (ADEQUATE) DECREASED Hypochromic-Microcytic 1+ Poikilocytosis 2+ Anisocytosis 1+ Ovalocytes 1+ PUBS MCHC (33.0 - 37.0 G/DL) 33.8 12/05 12/05 1926 1613 Chemistry Sodium (137 - 145 mmol/L) 141 Potassium (3.5 - 5.1 mmol/L) 4.5 Chloride (98 - 107 mmol/L) 102 Carbon Dioxide (22 - 30 mmol/L) 22 Anion Gap (5 - 16) 17 H BUN (9 - 20 mg/dL) 28 H Creatinine (0.7 - 1.2 mg/dL) 1.5 H Estimated GFR (>60 ml/min) 45 L BUN/Creatinine Ratio (7 - 25 %) 18.7 Glucose (65 - 99 mg/dL) 115 H Lactic Acid (0.7 - 2.1 mmol/L) 1.6 2.0 Calcium (8.4 - 10.2 mg/dL) 10.0 Total Bilirubin (0.2 - 1.3 mg/dL) 1.8 H AST (17 - 59 U/L) 41 ALT (21 - 72 U/L) 40 Alkaline Phosphatase (< 127 U/L) 130 H Troponin I (<0.11 ng/ml) 0.09 Total Protein (6.3 - 8.2 g/dL) 8.5 H Albumin (3.5 - 5.0 g/dL) 4.6 Globulin (1.9 - 4.2 gm/dL) 3.9 Albumin/Globulin Ratio (1.1 - 2.2 %) 1.2 Coagulation PT (9.4 - 12.5 SEC) 14.8 H INR (0.90 - 1.17) 1.41 H Hematology CBC w Diff NO MAN DIFF REQ WBC (4.8 - 10.8 /CUMM) 14.5 H RBC (4.70 - 6.10 /CUMM) 4.78 Hgb (14.0 - 18.0 G/DL) 15.6 Hct (42 - 52 %) 46.3 MCV (80.0 - 94.0 FL) 96.9 H MCH (27.0 - 31.0 PG) 32.6 H RDW (11.5 - 14.5 %) 13.5 Plt Count (130 - 400 /CUMM) 171 MPV (7.4 - 10.4 FL) 8.4 Gran % (42.2 - 75.2 %) 95.2 H Lymphocytes % (20.5 - 51.1 %) 2.1 L Monocytes % (1.7 - 9.3 %) 2.3 Eosinophils % (0 - 5 %) 0.3 Basophils % (0.0 - 2.0 %) 0.1 Absolute Granulocytes (1.4 - 6.5 /CUMM) 13.8 H Absolute Lymphocytes (1.2 - 3.4 /CUMM) 0.3 L Absolute Monocytes (0.10 - 0.60 /CUMM) 0.3 Absolute Eosinophils (0.0 - 0.7 /CUMM) 0 Absolute Basophils (0.0 - 0.2 /CUMM) 0 PUBS MCHC (33.0 - 37.0 G/DL) 33.6 Diagnostic Data EKG Results 12/05/2017: Atrial fibrillation with rapid mean ventricular response of > 110 bpm, VPC, low frontal lead voltage, consider old ASMI, and nondiagnostic inferior T-wave abnormalities. CXR Results 12/05/2017:Lungs are clear. No pulmonary vascular congestion. There is no pleural effusion. The heart size is normal. The cardiac and mediastinal contours are normal. There are calcifications of the thoracic aorta. There are multilevel degenerative changes of dorsal spine. Other Results CT abdomen/pelvis 12/05/2017: 1. No acute abnormality CT scan abdomen pelvis. No acute change of the bowel. 2. 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 3. Status post hernia repair left groin without recurrent hernia. 4. Status post appendectomy. 5. Status post bilateral hip replacement. Assessment/Plan Assessment/Plan [id number] w/ hx remote tobacco use, HTN, HLD, gout, hypothyroidism, "smoldering " mm/"systemic" amyloidosis w/o cardiac involvement s/p myocardial biopsy, CKD, & ch AF on NOAC who presented to the ED 12/05/2017 early a.m. with c/o abdominal pain ("5/5"), nausea, vomiting, diarrhea. Suspect that his modest troponin I elevation is on the basis of a type II VT ( tachycardia, LVH, acute on chronic kidney disease, etc. and not an acute coronary syndrome, but he does have risk factors for CAD and we will continue to follow-up on his troponins, repeat electrocardiogram, and will obtain an echocardiogram to assess for wall motion abnormalities and overall left ventricular function in light of his abnormal electrocardiogram. [place] mentioning is the fact that the patient did have two previous cardiac catheterizations (~2004, 2017) which revealed no evidence of obstructive coronary artery disease. Suspect his presentations on the basis of an acute viral gastroenteritis with associated acute on chronic kidney disease. Fortunately, his renal function has improved and we can maintain him on his present dosage of apixaban. Recommendations: * Continue on telemetry, follow-up electrocardiogram, follow-up troponins. * Continue gentle IV hydration. * Hold diuretics (furosemide, spironolactone), & other antihypertensives ( metoprolol, tamsulosin) for the short-term. * Continue apixaban and atorvastatin. * Echocardiogram to assess LV function, LVH, PA pressures, etc. * Follow-up cultures. * Check magnesium, free T4, TSH, glycosylated hemoglobin A1c. * Follow-up alkaline phosphatase given history of prostate carcinoma and multiple myeloma. * DVT prophylaxis being addressed by anticoagulation for his chronic AF. Further recommendations will follow, Thank you. Consult Acknowledgment - Thank you for your consult request.
[2017-12-06 14:00] VITALS: BP 98/60
[2017-12-06 23:08] VITALS: BP 92/54
[2017-12-07 07:00] VITALS: BP 112/72
[2017-12-07 08:20] LABS: ABSOLUTE BASOPHIL COUNT 0 /CUMM (0.0-0.2); ABSOLUTE EOSINOPHIL COUNT 0.1 /CUMM (0.0-0.7); ABSOLUTE GRANULOCYTE CT 2.6 /CUMM (1.4-6.5); ABSOLUTE LYMPH COUNT 0.6 /CUMM (1.2-3.4); ABSOLUTE MONOCYTE COUNT 0.6 /CUMM (0.10-0.60); BASOPHIL % 0.4 % (0.0-2.0); EOSINOPHIL % 2.4 % (0-5); HEMATOCRIT 38.5 % (42-52); MEAN CORPUSCULAR HGB 32.9 PG (27.0-31.0); MEAN CORPUSCULAR HGB CONC 33.7 G/DL (33.0-37.0); MEAN CORPUSCULAR VOLUME 97.6 FL (80.0-94.0); MEAN PLATELET VOLUME 8.4 FL (7.4-10.4); PLATELET COUNT 133 /CUMM (130-400); RBC DISTRIBUTION WIDTH 13.6 % (11.5-14.5); RED BLOOD CELL CT 3.95 /CUMM (4.70-6.10); WHITE BLOOD CELL COUNT 3.9 /CUMM (4.8-10.8)
--- NOTE | 2017-12-07 08:52 | PN- Housestaff ---
Jonna Sanchez MD,Ami 12/07/17 0852: Subjective Follow-up For: gastroenteritis Tele-Events Since Last Visit: afib/flutter PVCs Subjective: Patient visited today, was lying in bed comfortably in no acute distress, was alert and oriented. had 1 bowel movement this morning which was relatively loose but not watery No fever or chills, no shortness of breathing, no chest pain, no other events. Patient was stable to be discharged. Echo was reviewed by cardiology and attending. After reviewing the whole case. Attending and cardiology Planned to be discharged today with recommendations to follow in outpatient with PCP and cardiology in 1 week. Medications were resumed upon discharge according to the plan comfort. Review of Systems Constitutional: Reports: see HPI. Objective Last 24 Hrs of Vital Signs/I&O Vital Signs Date Time Temp Pulse Resp B/P B/P Pulse O2 O2 Flow FiO2 Mean Ox Delivery Rate 12/07 1400 98.0 72 20 142/90 97 Room Air 12/07 0700 97.9 61 20 112/72 98 12/06 2308 98.0 70 22 92/54 98 Intake & Output 12/07 1600 12/07 0800 12/07 0000 Intake Total 700 220 120 Output Total 500 Balance 700 220 -380 Intake, Oral 700 220 120 Number 2 Bowel Movements Output, Urine 500 Physical Exam General Appearance: Alert, Oriented X3, Cooperative, No Acute Distress Skin: No Significant Lesion Skin Temp/Moisture Exam: Warm/Dry Sepsis Skin Exam (color): Normal for Ethnicity HEENT: Atraumatic, EOMI, Mucous Membr. moist/pink Cardiovascular: Normal S1, Normal S2, irreg irreg Lungs: Clear to Auscultation Abdomen: Soft, No Tenderness Extremities: No Clubbing, No Cyanosis, No Edema Current Medications: Current Medications Sig/Natalia Start time Last Medication Dose Route Stop Time Status Admin Acetaminophen 650 MG Q6P PRN 12/055 DCD PO Apixaban 5 MG BID 12/05 2200 DCD 12/07 PO 0933 Atorvastatin Calcium 40 MG 1700 12/06 1700 DCD 12/07 PO 1615 Doxycycline Hyclate 100 MG DAILY 12/06 1000 DCD 12/07 PO 0933 Levothyroxine Sodium 0.075 MG DAILY AC 12/06 0700 DCD 12/07 PO 0613 Loperamide HCl 2 MG Q3P PRN 12/06 1500 DCD 12/06 PO 1455 Last 24 Hrs of Lab/[place] Results Last 24 Hrs of Labs/Mics: Laboratory Tests 12/07/17 0645: Anion Gap 11, Estimated GFR 53 L, BUN/Creatinine Ratio 15.4, CBC w Diff NO MAN DIFF REQ, RBC 3.95 L, MCV 97.6 H, MCH 32.9 H, RDW 13.6, MPV 8.4, Gran % 67.0, Lymphocytes % 14.8 L, Monocytes % 15.4 H, Eosinophils % 2.4, Basophils % 0.4, Absolute Granulocytes 2.6, Absolute Lymphocytes 0.6 L, Absolute Monocytes 0.6, Absolute Eosinophils 0.1, Absolute Basophils 0, PUBS MCHC 33.7 Assessment/Plan Assessment: Mr. Billings is a 82 yo m with a PMH significant for Afib on Eliquis, Systemic Amyloidosis, Smoldering Myeloma, ?CHF, Hypothyroidism, HTN, HLD, nicotine dependence (1PPD x 6 yrs, quit 55 yrs ago) who present to the ED with NVD and lower abdominal pain admitted to telemetry for elevated troponin. Problem List: 1. Viral gastroenteritis 2. Type II NC, demand ischemia 3. RODRÍGUEZ #Viral gastroenteritis: He had copious vomiting and diarrhea that was nonbloody. His symptoms resolved in less than 24 hours. Imaging did not reveal any acute abnormalities. He has had not had any further symptoms since 11 PM last night. His electrolytes look good this morning. He has received 4 L normal saline. -Continue supportive care - stable to be discharged as no soft stools #Type II NC, demand ischemia: He never had chest pain. However, troponins were mildly elevated. There continue to trend slightly. Echo was done: Normal size left ventricle. Severe concentric left ventricular hypertrophy. Normal size left ventricle. Severe concentric left ventricular hypertrophy. Myocardium with increased echogenicity and "granular sparkling" appearance. Normal left ventricular ejection fraction visually estimated at 55%. Normal right ventricular size and function. Mild atrial dilatation. Mild mitral regurgitation. Trace aortic regurgitation. Mild tricuspid regurgitation. Mild pulmonary hypertension. Mild pulmonic regurgitation. Small pericardial effusion. No echocardiographic findings to suggest a hemodynamically significant pericardial effusion. Upper normal limits for size aortic root. -Follow EKG and troponins were trended down -Cardiology consult - Recommendations to follow-up in outpatient within a week #RODRÍGUEZ: Creatinine is 1.5 at admission. He has no baseline because he has not been here before. May be prerenal azotemia in the setting of infection. -Continued to monitor #Chronic medical problems: -Continue home atorvastatin, doxycycline, levothyroxine, apixiban DVT prophylaxis with apixiban Heart healthy diet Full code Problem List: 1. Nausea vomiting and diarrhea 2. Elevated troponin Pain Ratin Pain Location: None Pain Goal: Pain 4 or less Pain Plan: Continue plan Tomorrow's Labs & Rationales: none DC Alivia Ledbetter 12/07/17 1220: Attending MD Review Statement Attending Statement Attending MD Statement: examined this patient, discuss w/resident/PA/RAIL ASSEMBLER, agreed w/resident/PA/RAIL ASSEMBLER, discussed with family, reviewed EMR data (avail), discussed with nursing, discussed with case mgmt, reviewed images, amended to note Attending Assessment/Plan: Patient seen/examined bedside. Patient denies any new compliants. Patient cardiac enzymes noted and trended down. He had cardiac catheterization last year at [facility] and it was negative as per patient. Advance diet as tolerated. Cardiology consulted for likely type 2 NSTEMI. Resume bp meds when able. Afib rate controlled on eliquis. ECHO as per cardiology. f/u cardiology. gi/dvt prophyalxis full code. Anticipate dc soon.
[2017-12-07] MEDS ORDERED: LOPERAMIDE2 M2 PO (13:27)
--- NOTE | 2017-12-07 13:37 | Patient Discharge Instructions ---
Discharge Instructions General Discharge Information You were seen/treated for: Diarrhea Watch for these problems: Severe chest pain, palpitation, heart racing, shortness of breathing, increased diarrhea, dizziness Special Instructions: Follow with your PCP within one week of discharge. Please follow with your technical designer within 1 week of discharge. Diet Continue normal diet: No Recommended Diet: Heart Healthy Activity Full Activity/No Limits: No Activity Self Limited: Yes Acute Coronary Syndrome Inclusion Criteria At DC or during hospital stay patient has or had the following: ACS DIAGNOSIS No Discharge Core Measures Meds if any: Prescribed or Continued at Discharge Meds if any: NOT Prescribed or Continued at Discharge Congestive Heart Failure Inclusion Criteria At DC or during hospital stay patient has or had the following: CHF DIAGNOSIS No Discharge Core Measures Meds if any: Prescribed or Continued at Discharge Meds if any: NOT Prescribed or Continued at Discharge Cerebrovascular accident Inclusion Criteria At DC or during hospital stay patient has or had the following: CVA/TIA Diagnosis No Discharge Core Measures Meds if any: Prescribed or Continued at Discharge Meds if any: NOT Prescribed or Continued at Discharge Venous thromboembolism Inclusion Criteria VTE Diagnosis No VTE Type NONE VTE Confirmed by (Test) NONE Discharge Core Measures - Per Current guidelines, there needs to be overlap - treatment for the first 5 days of Warfarin therapy. - If discharged on Warfarin prior to 5 days of - overlap therapy, the patient will need to be - assessed for post discharge needs including - *Post discharge parental anticoagulation - *Warfarin and/or parental anticoagulation education - *Follow up date to check INR post discharge At least 5 days overlap therapy as Inpatient No Meds if any: Prescribed or Continued at Discharge Note: Overlap Therapy is Warfarin and Anticoagulant Meds if any: NOT Prescribed or Continued at Discharge
[2017-12-07 14:00] VITALS: BP 142/90
--- NOTE | 2017-12-07 14:50 | ECHOCARDIOGRAM REPORT ---
SHAI TONEY Age: 82 : 1935 Gender: M Exam Date: 12/07/2017 10:04 Exam Location: 1 [address] Ht (in): 70 Wt (lb): 198 BSA: 2.12 BP: 112 / 79 Ordering Physician: Fidelia Champion MD Referring Physician: David Jason MD Technologist: Kateryna Flores [facility] Room Number: 177 Indications: CARDIOMYOPATHY Rhythm: Atrial fibrillation Technical Quality: Fair FINDINGS Left Ventricle Normal size left ventricle. Severe concentric left ventricular hypertrophy. Myocardium with increased echogenicity and "granular sparkling" appearance. Normal left ventricular ejection fraction visually estimated at 55%. Right Ventricle Normal right ventricular size and function. Right Atrium Mild right atrial dilatation. Left Atrium Mild left atrial dilatation. Mitral Valve Mildly calcified mitral valve annulus. Mitral valve thickened. Mild mitral regurgitation. Aortic Valve Trileaflet aortic valve. Focal thickening of the non coroary aortic valve cusp. No aortic valve stenosis. Trace aortic regurgitation. Tricuspid Valve Structurally normal tricuspid valve. Mild tricuspid regurgitation. Mild pulmonary hypertension. Right ventricular systolic pressure estimated to be elevated at 41 mmHg. Pulmonic Valve Pulmonic valve not well visualized, grossly normal. Mild pulmonic regurgitation. Pericardium Small pericardial effusion. No echocardiographic findings to suggest a hemodynamically significant pericardial effusion. Great Vessels Upper normal limits for size aortic root. CONCLUSIONS Normal size left ventricle. Severe concentric left ventricular hypertrophy. Normal size left ventricle. Severe concentric left ventricular hypertrophy. Myocardium with increased echogenicity and "granular sparkling" appearance. Normal left ventricular ejection fraction visually estimated at 55%. Normal right ventricular size and function. Mild atrial dilatation. Mild mitral regurgitation. Trace aortic regurgitation. Mild tricuspid regurgitation. Mild pulmonary hypertension. Mild pulmonic regurgitation. Small pericardial effusion. No echocardiographic findings to suggest a hemodynamically significant pericardial effusion. Upper normal limits for size aortic root. David Jason M.D. (Electronically Signed) Final Date: 07 December 2017 14:49 MEASUREMENTS (Male / Female) Normal Values 2D ECHO LV Diastolic Diameter PLAX 3.8 cm 4.2 - 5.9 / 3.9 - 5.3 cm LV Systolic Diameter PLAX 2.5 cm 2.1 - 4.0 cm LV Fractional Shortening PLAX 34.2 % 25 - 46 % LV Ejection Fraction 2D Teich 64.0 % IVS Diastolic Thickness 2.0 cm LVPW Diastolic Thickness 2.2 cm LV Relative Wall Thickness 1.1 RV Internal Dim ED PLAX 2.8 cm 1.9 - 3.8 cm LVOT Diameter 2.0 cm Aortic Root Diameter 3.6 cm LA Systolic Diameter LX 4.5 cm 3.0 - 4.0 / 2.7 - 3.8 cm LA Volume 62.0 cm 18 - 58 / 22 - 52 cm Ascending Aorta Diameter 3.6 cm DOPPLER AV Peak Velocity 139.0 cm/s AV Peak Gradient 7.7 mmHg AV Mean Velocity 92.2 cm/s AV Mean Gradient 4.0 mmHg AV Velocity Time Integral 25.4 cm LVOT Peak Velocity 95.5 cm/s LVOT Peak Gradient 3.6 mmHg LVOT Mean Velocity 56.3 cm/s LVOT Mean Gradient 2.0 mmHg LVOT Velocity Time Integral 20.7 cm LVOT Stroke Volume 65.0 cm AV Area Cont Eq vti 2.6 cm AV Area Cont Eq pk 2.2 cm MV Peak Velocity 137.0 cm/s MV Peak Gradient 7.5 mmHg MV Mean Velocity 55.0 cm/s MV Mean Gradient 2.0 mmHg Mitral E Point Velocity 92.8 cm/s MV PHT Velocity 143.0 cm/s MV Deceleration [place] 638.0 cm/s MV Pressure Half Time 67.2 ms MV Area PHT 3.3 cm MV Deceleration Time 204.0 ms TR Peak Velocity 300.0 cm/s TR Peak Gradient 36.0 mmHg Right Atrial Pressure 5.0 mmHg Pulmonary Artery Systolic Pressu 41.0 mmHg Right Ventricular Systolic Press 41.0 mmHg PV Peak Velocity 73.1 cm/s PV Peak Gradient 2.1 mmHg PV Mean Velocity 49.4 cm/s PV Mean Gradient 1.0 mmHg PV Velocity Time Integral 12.7 cm LV E' Lateral Velocity 6.7 cm/s Mitral E to LV E' Lateral Ratio 13.8 LV E' Septal Velocity 5.3 cm/s Mitral E to LV E' Septal Ratio 17.6
== END 2017-12-07 18:33 | DRG 682 ==
LOC: ERH 15:42 → 1NO 21:01 → ERHI 21:01 → ENRESERV 22:27 → CANRESERV 22:27 → ENTRNSPT 22:41 → ENRESERV 22:46 → 1NO 22:56 → CMPTRNSPT 23:12 → 1NO 23:27 → ENRESERV 12-06 01:24 → CANRESERV 12-06 01:24 → 1NO 12-07 14:23
PROVIDERS: Internal Medicine; Physician Assistant Medical
DX: N17.9 Acute kidney failure, unspecified (principal); I21.A1 Myocardial infarction type 2; E85.89 Other amyloidosis; I13.0 Hypertensive heart and chronic kidney disease with heart failure and stage 1 through stage 4 chronic kidney disease, or unspecified chronic kidney disease; A08.4 Viral intestinal infection, unspecified; I50.9 Heart failure, unspecified; I48.2 Chronic atrial fibrillation; N18.9 Chronic kidney disease, unspecified; Z87.891 Personal history of nicotine dependence; E78.5 Hyperlipidemia, unspecified; M10.9 Gout, unspecified; Z79.01 Long term (current) use of anticoagulants
CPT/HCPCS: 1NP; 36415; 71045; 74176; 82436; 87045; 87804; 87804-59; 93005; 93010; 93306; 96361; 96374; J2405